=== PATIENT | female | born 1965 | race Caucasian/White ===

== ENCOUNTER 2017-04-07 12:10 | Emergency (ER) | payer BC, OTHER ==
[~2017-04-07] VITALS: Ht 162.6 cm; Wt 110.0 kg
[2017-04-07] MEDS ORDERED: SODIUM CHLORIDE 0.9% 1,000 ML IV ONE (12:36)
[2017-04-07] MEDS ORDERED: ATEN5POW PO (12:42)
[2017-04-07] MEDS ORDERED: LISI1POW PO (12:42)
[2017-04-07] MEDS ORDERED: CARB300C PO (12:42)
[2017-04-07] MEDS ORDERED: ONDANSETRON 2MG/ML, 2ML IVPush ONE ×2 (13:00→17:00)
[2017-04-07] MEDS ORDERED: morphine SULFATE 10 MG/ML, 1ML ONE ×4 (13:09→19:31)
[2017-04-07] MEDS ORDERED: ONDANSETRON 2MG/ML, 2ML ONE ×2 (13:09→16:39)
[2017-04-07 13:12] LABS: HEMATOCRIT 44.8 % (34.6-47.8); HEMOGLOBIN 15.5 g/dL (11.7-16.4); WHITE BLOOD COUNT 7.7 x10^3/uL (3.4-10)
[2017-04-07 13:25] LABS: BLOOD UREA NITROGEN 12 mg/dL (7-18)
[2017-04-07] MEDS: MORPHINE SULFATE 4 MG/ML, 1ML IVPush PRN ×2 (13:33→15:36)
[2017-04-07] MEDS ORDERED: morphine SULFATE 10 MG/ML, 1ML IVPush ONE (17:00)
[2017-04-07] MEDS ORDERED: PROPOFOL 10 MG/ML, 20ML ONE ×2 (18:50→19:29)
[2017-04-07] MEDS ORDERED: PROPOFOL 10 MG/ML, 20ML IVPush ONE ×2 (19:00→19:30)
[2017-04-07] MEDS ORDERED: MORPHINE SULFATE 4 MG/ML, 1ML IVPush ONE (19:30)
[2017-04-07 20:15] VITALS: BP 129/75
== END 2017-04-07 20:43 | disposition home or self-care (01) ==
LOC: ED 17:05
DX: S82.302A Unspecified fracture of lower end of left tibia, initial encounter for closed fracture (principal); S82.832A Other fracture of upper and lower end of left fibula, initial encounter for closed fracture; S93.02XA Subluxation of left ankle joint, initial encounter; G40.909 Epilepsy, unspecified, not intractable, without status epilepticus; I10 Essential (primary) hypertension; W10.9XXA Fall (on) (from) unspecified stairs and steps, initial encounter; Y93.01 Activity, walking, marching and hiking; Y92.89 Other specified places as the place of occurrence of the external cause; Y99.8 Other external cause status
CPT/HCPCS: 27788; 27825; 36415; 73590; 73600; 73610; 73700; 76000; 80048; 82040; 85025; 96361; 96374; 96375; 96376; 99152; 99153; 99285; J2270; J2405; J2704; J7030

== ENCOUNTER 2017-04-13 08:15 | Day surgery (SDC) | payer OTHER ==
[~2017-04-13] VITALS: Ht 162.6 cm; Wt 122.7 kg
[~2017-04-13 08:15] MED LIST: ATEN5POW PO; CARB300C PO; LISI1POW PO
[2017-04-13] MEDS ORDERED: FENTANYL PF 100 MCG/2ML ONE ×4 (08:50→12:04)
[2017-04-13] MEDS ORDERED: MIDAZOLAM 1 MG/ML, 2ML ONE (08:50)
[2017-04-13] MEDS ORDERED: SUCCINYLCHOLINE 20 MG/ML, 10ML ONE ×2 (08:52→10:09)
[2017-04-13] MEDS ORDERED: BUPIVACAINE/PF 0.25% ONE ×2 (08:52)
[2017-04-13] MEDS ORDERED: PROPOFOL 10 MG/ML, 20ML ONE (08:52)
[2017-04-13] MEDS ORDERED: LACTATED RINGERS 1,000 ML IV SCH (08:57)
[2017-04-13] MEDS ORDERED: LIDOCAINE 1%, 2ML SQ PRN (09:00)
[2017-04-13] MEDS ORDERED: ATEN100T PO (09:03)
[2017-04-13] MEDS ORDERED: OXYC5CAP2 PO (09:03)
[2017-04-13] MEDS ORDERED: IBUP-1222 PO (09:03)
[2017-04-13] MEDS ORDERED: POTA25TA PO (09:03)
[2017-04-13] MEDS ORDERED: CETI10TA24 PO (09:03)
[2017-04-13] MEDS ORDERED: UBID1CAP43 PO (09:03)
[2017-04-13 09:10] VITALS: BP 130/85
[2017-04-13] MEDS ORDERED: ONDANSETRON 2MG/ML, 2ML IVPush PRN ×2 (10:00→14:30)
[2017-04-13] MEDS ORDERED: LABETALOL 5MG/ML, 20ML IV PRN (10:00)
[2017-04-13] MEDS ORDERED: HYDROcodone/APAP 7.5-325MG/15ML UDC PO PRN (10:00)
[2017-04-13] MEDS ORDERED: ACETAMINOPHEN 325 MG TABLET PO PRN (10:00)
[2017-04-13] MEDS ORDERED: OXYcodone 5 MG/5 ML ORAL.SOL UDC PO PRN ×2 (10:00→14:30)
[2017-04-13] MEDS ORDERED: hydrALAzine 20 MG/ML, 1ML IV PRN (10:00)
[2017-04-13] MEDS ORDERED: ROCURONIUM 10 MG/ML ONE (10:09)
[2017-04-13] MEDS ORDERED: CEFAZOLIN 1,000 MG ONE (10:09)
[2017-04-13] MEDS ORDERED: VASOPRESSIN 20 UNIT/ML, 1ML ONE (10:09)
[2017-04-13] MEDS ORDERED: ONDANSETRON 2MG/ML, 2ML ONE (10:09)
[2017-04-13] MEDS ORDERED: DEXAMETHASONE 4 MG/ML, 1ML ONE (10:09)
[2017-04-13] MEDS ORDERED: ACETAMINOPHEN 650 MG/20.3 ML UDC ONE (11:43)
[2017-04-13] MEDS ORDERED: HYDROmorphone 1 MG/ML, 1ML ONE ×2 (11:43→12:20)
[2017-04-13] MEDS ORDERED: OXYcodone 5 MG/5 ML ORAL.SOL UDC ONE (11:43)
[2017-04-13] MEDS: FENTANYL PF 100 MCG/2ML IV PRN ×4 (11:45→12:43)
[2017-04-13] MEDS: HYDROmorphone 1 MG/ML, 1ML IV PRN ×4 (11:47→12:31)
[2017-04-13] MEDS ORDERED: KETOROLAC 30 MG/1 ML ONE (14:09)
[2017-04-13] MEDS ORDERED: morphine SULFATE 10 MG/ML, 1ML ONE (14:11)
[2017-04-13] MEDS ORDERED: PROMETHAZINE 25 MG/ML, 1ML IM PRN (14:30)
[2017-04-13] MEDS ORDERED: morphine SULFATE 10 MG/ML, 1ML IVPush PRN (14:30)
[2017-04-13] MEDS ORDERED: KETOROLAC 30 MG/1 ML IVPush SCH (14:30)
== END 2017-04-13 14:48 ==
LOC: OUT 08:15
PROVIDERS: ATTEND Orthopaedic Surgery
DX: S82.62XA Displaced fracture of lateral malleolus of left fibula, initial encounter for closed fracture (principal); S93.492A Sprain of other ligament of left ankle, initial encounter; X58.XXXA Exposure to other specified factors, initial encounter; Y93.89 Activity, other specified; Y92.89 Other specified places as the place of occurrence of the external cause; Y99.8 Other external cause status; I10 Essential (primary) hypertension; E66.01 Morbid (severe) obesity due to excess calories; Z68.42 Body mass index [BMI] 45.0-49.9, adult
CPT/HCPCS: 27792; 27829; 73600; 76000; C1713; J0330; J0690; J1100; J1170; J1885; J2250; J2405; J2704; J3010; J3490; J7120

== ENCOUNTER → 2018-06-20 | Outpatient (CLI) | payer OTHER ==
[~2018-06-20] MED LIST changes: +ATEN100T PO; +CETI10TA24 PO; +IBUP-1222 PO; +OXYC5CAP2 PO; +POTA25TA PO; +UBID1CAP43 PO
== END | disposition home or self-care (01) ==
LOC: CFH 11:15
PROVIDERS: ATTEND Obstetrics & Gynecology
DX: Z12.31 Encounter for screening mammogram for malignant neoplasm of breast (principal)
CPT/HCPCS: 77067

== ENCOUNTER 2019-01-05 08:24 | Outpatient (CLI) | payer OTHER | END 2019-01-05 23:59 | disposition home or self-care (01) | LOC: STAR 08:24 | PROVIDERS: ATTEND Specialist | DX: Z01.818 Encounter for other preprocedural examination (principal); J03.91 Acute recurrent tonsillitis, unspecified; J35.8 Other chronic diseases of tonsils and adenoids; R19.6 Halitosis | CPT/HCPCS: 36415; 80053 ==

== ENCOUNTER 2019-01-09 08:01 | Day surgery (SDC) | payer OTHER ==
[~2019-01-09] VITALS: Ht 162.6 cm; Wt 124.4 kg
[~2019-01-09 08:01] MED LIST changes: +ASCO500T8 PO; +ATEN1TAB3 PO; +B CO1TAB14 PO; +BUPIVACAINE/PF-EPI 0.5% 1:200K ONE; +LISI-167 PO; +LUTE20TA PO; +MAGN400T7 PO; +PANT40TA5 PO; +Vitamin D3 PO; +ZINC50CA PO
[2019-01-09] MEDS ORDERED: MIDAZOLAM 1 MG/ML, 2ML ONE (08:04)
[2019-01-09] MEDS ORDERED: FENTANYL PF 100 MCG/2ML ONE (08:04)
[2019-01-09] MEDS ORDERED: LIDOCAINE-MPF 2% ,5ML ONE (08:06)
[2019-01-09] MEDS ORDERED: LACTATED RINGERS 1,000 ML IV SCH (08:39)
[2019-01-09 08:47] LABS: HCG UR SG 1.023 (1.003-1.030)
[2019-01-09 09:05] VITALS: BP 133/85
[2019-01-09] MEDS ORDERED: KETOROLAC 30 MG/1 ML ONE (09:53)
[2019-01-09] MEDS ORDERED: PROMETHAZINE 25 MG/ML, 1ML IV PRN (10:00)
[2019-01-09] MEDS ORDERED: ONDANSETRON ODT 8 MG PO PRN (10:00)
[2019-01-09] MEDS ORDERED: OXYcodone 5 MG/5 ML ORAL.SOL UDC PO PRN (10:00)
[2019-01-09] MEDS ORDERED: ONDANSETRON 2MG/ML, 2ML IV PRN (10:00)
[2019-01-09] MEDS ORDERED: LORazepam 2 MG/ML, 1ML IVPush PRN (10:00)
[2019-01-09] MEDS ORDERED: METOPROLOL 1 MG/ML, 5ML IV PRN (10:00)
[2019-01-09] MEDS ORDERED: ACETAMINOPHEN 325 MG TABLET PO PRN (10:00)
[2019-01-09] MEDS ORDERED: FENTANYL PF 100 MCG/2ML IV PRN (10:00)
[2019-01-09] MEDS ORDERED: HYDROmorphone 2 MG/ML, 1ML IVPush PRN (10:00)
[2019-01-09] MEDS ORDERED: LABETALOL 5MG/ML, 20ML IV PRN (10:00)
[2019-01-09] MEDS ORDERED: hydrALAzine 20 MG/ML, 1ML IV PRN (10:00)
[2019-01-09] MEDS ORDERED: GLYCOPYRROLATE 0.2MG/1ML, 5ML ONE (10:22)
[2019-01-09] MEDS ORDERED: ROCURONIUM 10MG/ML,5ML ONE (10:22)
[2019-01-09] MEDS ORDERED: NEOSTIGMINE 1 MG/ML, 10ML ONE (10:22)
[2019-01-09] MEDS ORDERED: CEFAZOLIN 1,000 MG ONE (10:22)
[2019-01-09] MEDS ORDERED: DEXAMETHASONE 4 MG/ML, 1ML ONE (10:22)
[2019-01-09] MEDS ORDERED: ONDANSETRON 2MG/ML, 2ML ONE (10:22)
[2019-01-09] MEDS ORDERED: SUCCINYLCHOLINE 20 MG/ML, 10ML ONE (10:22)
[2019-01-09] MEDS ORDERED: PROPOFOL 10 MG/ML, 20ML ONE (10:22)
[2019-01-09] MEDS ORDERED: OXYcodone 5 MG/5 ML ORAL.SOL UDC ONE (10:58)
== END 2019-01-09 14:30 | disposition home or self-care (01) ==
LOC: OUT 08:01
PROVIDERS: ATTEND Specialist
DX: J35.01 Chronic tonsillitis (principal); J35.8 Other chronic diseases of tonsils and adenoids; J37.0 Chronic laryngitis; R19.6 Halitosis; I10 Essential (primary) hypertension; K21.9 Gastro-esophageal reflux disease without esophagitis; G40.909 Epilepsy, unspecified, not intractable, without status epilepticus; E66.9 Obesity, unspecified; Z79.899 Other long term (current) drug therapy; Z72.89 Other problems related to lifestyle
CPT/HCPCS: 42826; 81025; 88304; J0330; J0690; J1100; J1885; J2250; J2405; J2704; J3010; J7120; J2710